=== PATIENT | female | born 1945 | race Caucasian/White ===

== ENCOUNTER 2019-04-07 17:37 | Emergency (ER) | payer MEDICARE, OTHER ==
[~2019-04-07] VITALS: Ht 157.5 cm; Wt 56.2 kg
--- NOTE | 2019-04-07 18:40 | NUR ---
BIB FAMILY FOR PSYCH EVAL FOR [facility] PSYCH ADMISSION. PER FAMILY, AGRESSIVE AND COMBATIVE TO CAREGIVER. PATIENT A/OX1, CONFUSED, APPLIED TO THE MONITOR. FAMILY AT BEDSIDE, KEPT PATIENT SAFE, NO DISTRESS NOTED.
[2019-04-07] MEDS ORDERED: LOSA100T31 PO (18:51)
[2019-04-07] MEDS ORDERED: ESCI10TA PO (18:51)
[2019-04-07] MEDS ORDERED: DIVA500T2 PO (18:51)
[2019-04-07] MEDS ORDERED: DIAZ10TA4 PO (18:51)
[2019-04-07 18:56] LABS: BASOPHILS # (AUTO) 0.1 /CMM (0.0-0.2); BASOPHILS % (AUTO) 0.8 % (0.0-2.0); EOSINOPHILS % (AUTO) 1.2 % (0.0-6.0); HEMATOCRIT 42 % (33-45); LYMPHOCYTES # (AUTO) 2.2 /CMM (0.8-4.8); LYMPHOCYTES % (AUTO) 27.5 % (20.0-44.0); MEAN CORPUSCULAR HGB CONC 34 g/dl (31.0-36.0); MEAN CORPUSCULAR VOLUME 96 fL (82-100); MONOCYTES # (AUTO) 0.6 /CMM (0.1-1.30); NEUTROPHILS # (AUTO) 5.1 /CMM (1.8-8.9); NEUTROPHILS % (AUTO) 63.5 % (43.0-81.0); PLATELET COUNT (AUTO) 247 /CMM (150-450); RED BLOOD CELL COUNT(AUTO) 4.35 MIL/uL (4.0-5.2); WHITE BLOOD COUNT (AUTO) 8.1 K/uL (4.3-11.0)
[2019-04-07] MEDS ORDERED: IV NS 0.9% 1,000 ML BAG IV ONE (19:00)
[2019-04-07 19:01] LABS: CALCIUM, SERUM 9.5 mg/dL (8.5-10.1); CARBON DIOXIDE 26 mmol/L (21-32); CHLORIDE 108 mmol/L (98-107); GLUCOSE 96 mg/dL (74-106); POTASSIUM 3.9 mmol/L (3.5-5.1); SODIUM SERUM 143 mmol/L (136-145); UREA NITROGEN, BLOOD 23 mg/dL (7-18)
[2019-04-07 19:07] LABS: ALANINE AMINOTRANSFERASE 16 U/L (12-78); ALBUMIN 3.5 g/dL (3.4-5.0); ALCOHOL, BLOOD < 3 mg/dL (0-0); ALKALINE PHOSPHATASE 62 U/L (46-116); ASPARTATE AMINOTRANSFERASE 16 U/L (15-37); BILIRUBIN,DIRECT 0.1 mg/dL (0.0-0.2); BILIRUBIN,TOTAL 0.6 mg/dL (0.2-1.0); TOTAL PROTEIN, SERUM 6.8 g/dL (6.4-8.2)
[2019-04-07 19:08] LABS: ACETAMINOPHEN 0 ug/ml (10-30); SALICYLATE 1.2 mg/dL (2.8-20.0)
--- NOTE | 2019-04-07 19:29 | NUR ---
PT DIRECT ADMIT TO [facility] UPON COMPLETED MED CLEARANCE AND PSYCH EVAL
--- NOTE | 2019-04-07 19:30 | NUR ---
TRANSFER INFO: [facility] ROOM [address] ANNA MARIE, RN FOR REPORT [phone]
[2019-04-07 19:52] LABS: APPEARANCE,URINE Clear (CLEAR); BILIRUBIN,URINE Negative (NEGATIVE); BLOOD, URINE Negative Ery/uL (NEGATIVE); COLOR,URINE Yellow (YELLOW); KETONES,URINE Trace (NEGATIVE); LEUKOCYTE ESTERASE ,URINE Small (NEGATIVE); NITRITE, URINE Negative (NEGATIVE); PH,URINE 7.5 (5.0-8.0); PROTEIN,URINE Negative (NEGATIVE); UGLUCOSE Negative (NEGATIVE); UROBILINOGEN,URINE 0.2 EU/dL (0.2)
--- NOTE | 2019-04-07 20:35 | NUR ---
QI JACKSON IS AT THE BEDSIDE SPEAKING TO THE PT AND HER FAMILY.
--- NOTE | 2019-04-07 20:40 | NUR ---
PT WAS TRYING TO GET OUT OF BED AND WAS ASSISTED BACK TO A SITTING POSITION. PT REMOVED ALL MONITOR LEADS.
[2019-04-07 20:42] LABS: BACTERIA,URINE Rare /HPF (None Seen); RBC,URINE 0-2 /HPF (0-2); SQUAMOUS EPITHELIAL CELL,UR Few /HPF (None Seen)
--- NOTE | 2019-04-07 20:58 | NUR ---
[facility] ETA [id number] [facility] [id number]
--- NOTE | 2019-04-07 21:59 | NUR ---
[facility] EMT'S ARRIVED. REPORT GIVEN TO EMT. UNIT #[id number].
[2019-04-07 22:12] VITALS: BP 159/87
--- NOTE | 2019-04-07 22:45 | NUR ---
REPORT GIVEN TO BRYSON BRADLEY AT [facility].
== END 2019-04-07 22:46 ==
LOC: ER 17:37
DX: F79 Unspecified intellectual disabilities (principal); F03.90 Unspecified dementia, unspecified severity, without behavioral disturbance, psychotic disturbance, mood disturbance, and anxiety; R41.82 Altered mental status, unspecified; I44.4 Left anterior fascicular block; E86.0 Dehydration
CPT/HCPCS: 36415; 80048; 80076; 80164; 80307; 81001; 85025; 93005; 99285; G0480; J7030; 80305; 81000-TC